=== PATIENT | female | born 1980 | race American Indian/Alaskan Native ===

== ENCOUNTER 2017-07-29 13:33 | Emergency (ER) | payer OTHER ==
--- NOTE | 2017-07-29 13:41 | Emergency Department Report ---
Chief Complaint: Headache Stated Complaint: MIGRAINE/COUGH Time Seen by Provider: 07/29/17 13:39 - HPI History of Present Illness: PT c/o headache x 1 week. PT states it usually hurts in the front but when she coughs the back of her head hurts + productive cough x 1 month - ROS Review of Systems: + post tussive emesis + productive cough on depo - Exam Physical Exam: PT looks well, non toxic PT GCS 15 no focal weakness MSE screening note: Focused history and physical exam performed. Due to findings the following was ordered: xr ED Disposition for MSE Condition: Stable
--- NOTE | 2017-07-29 14:06 | XRay Report ---
ROUTINE CHEST, TWO VIEWS: HISTORY: Productive cough. Partial atelectasis in the right middle lobe is identified which is new since 08/10/15. The remainder of the lungs are clear. No pleural effusion or pneumothorax. Heart and mediastinal structures are within normal limits. IMPRESSION: Partial atelectasis in the right middle lobe.
--- NOTE | 2017-07-29 16:40 | Emergency Department Report ---
ED Headache HPI - General Chief Complaint: Headache Stated Complaint: MIGRAINE/COUGH Time Seen by Provider: 07/29/17 16:39 Source: patient, family Exam Limitations: no limitations - History of Present Illness Initial Comments: Patient here complaining of headache 1 week. She also reports that she has a history of migraine and she was seen a neurologist in the past but she is not seen a neurologist now. She says she took [id number] medication but it didn't help. She is also reporting chest congestion. Denies any fever or chills. Denies any nausea or vomiting. Denies any abdominal pain. Denies any diarrhea. Headache is 10 out of 10" located in the front of her head and feels achy. Patient says she has been having in congestion for 2 months. She denies chest pain or shortness of breath. Patient has a history of migraine, diabetes and bipolar depression. Previous history of tubal ligation. She reports nasal congestion and drainage. She also reports pressure on her eyes. No over-the- counter medication taken. Timing/Duration: 1 week Quality: severe, achy Head Injury Location: frontal Recent Head Trauma: chronic headaches Modifying Factors: improves with: exposure to light, rest Associated Symptoms: nasal congestion, nasal drainage, other (port chest congestionorts chest congestion). denies: confusion, fatigue, facial pain, fever/chills, flushing, loss of consciousness, nausea/vomiting, numbness in legs /feet, rash, seizures, sinus infection, stiff neck, vision changes, weakness Allergies/Adverse Reactions: Allergies No Known Allergies Allergy (Verified 08/04/15 09:24) Home Medications: Ambulatory Orders Amoxicillin [Trimox CAP] 500 mg PO Q8H #30 capsule 08/04/15 Lidocaine Viscous 2% 5 ml MM Q6H #30 ml 08/04/15 Albuterol Sulfate [Ventolin HFA] 2 puff IH Q4H PRN #1 hfa.aer.ad 08/10/15 Amoxicillin/K Clav Tab [Augmentin 875 mg] 1 tab PO Q12HR #20 tab 07/29/17 Butalbit/Acetamin/Caff/Codeine [Fioricet/Codeine 28-343-91-30] 1 cap PO Q8HR PRN #15 cap 07/29/17 Cetirizine HCl [ZyrTEC] 10 mg PO QAM #14 capsule 07/29/17 Fluticasone [Flonase] 1 spray NS QDAY #1 bottle 07/29/17 ED Review of Systems ROS: Stated complaint: MIGRAINE/COUGH Other details as noted in HPI Comment: All other systems reviewed and negative Constitutional: no symptoms reported Eyes: denies: eye pain, vision change ENT: congestion. denies: ear pain, throat pain Respiratory: cough. denies: shortness of breath, SOB with exertion, SOB at rest , stridor, wheezing Cardiovascular: denies: chest pain, palpitations, edema, syncope Gastrointestinal: denies: abdominal pain, nausea, vomiting, diarrhea, constipation, hematemesis, melena, hematochezia Genitourinary: denies: urgency, dysuria, frequency, hematuria, discharge, abnormal menses, dyspareunia Musculoskeletal: denies: back pain, arthralgia Skin: denies: rash Neurological: headache. denies: weakness, numbness, paresthesias, confusion, abnormal gait, vertigo ED Past Medical Hx - Past Medical History Previous Medical History?: Yes Hx Diabetes: Yes Hx Headaches / Migraines: Yes (MIGRAINE) Hx Psychiatric Treatment: Yes (BIPOLAR/DEPRESSION) - Surgical History Past Surgical History?: Yes Additional Surgical History: TUBAL LIGATION - Family History Family history: hypertension - Social History Smoking Status: Current Every Day Smoker Substance Use Type: None - Medications Home Medications: Home Medications Medication Instructions Recorded Confirmed Last Taken Type Amoxicillin [Trimox CAP] 500 mg PO Q8H #30 capsule 08/04/15 Unknown Rx Lidocaine Viscous 2% 5 ml MM Q6H #30 ml 08/04/15 Unknown Rx Albuterol Sulfate [Ventolin HFA] 2 puff IH Q4H PRN #1 hfa.aer.ad 08/10/15 Unknown Rx Amoxicillin/K Clav Tab [Augmentin 1 tab PO Q12HR #20 tab 07/29/17 Unknown Rx 875 mg] Butalbit/Acetamin/Caff/Codeine 1 cap PO Q8HR PRN #15 cap 07/29/17 Unknown Rx [Fioricet/Codeine 74-832-21-30] Cetirizine HCl [ZyrTEC] 10 mg PO QAM #14 capsule 07/29/17 Unknown Rx Fluticasone [Flonase] 1 spray NS QDAY #1 bottle 07/29/17 Unknown Rx ED Physical Exam - General Limitations: No Limitations General appearance: alert, in no apparent distress - Head Head exam: Present: atraumatic, normocephalic, normal inspection - Expanded Head Exam Expanded Head exam: Absent: laceration, abrasion, contusion, hematoma, racoon eyes, morales's sign, general tenderness, tenderness of temporal artery, CSF rhinorrhea , CSF otorrhea - Eye Eye exam: Present: normal appearance, PERRL, EOMI. Absent: conjunctival injection, nystagmus, periorbital swelling, periorbital tenderness Pupils: Present: normal accommodation - ENT ENT exam: Present: normal orophraynx, mucous membranes moist, normal external ear exam, other (Bilateral nasal mucosa congested with erythema and clear drainage. Bilateral maxillary sinus tenderness to palpate). Absent: TM's normal bilaterally (bilateral TM congested without erythema) - Neck Neck exam: Present: normal inspection, full ROM. Absent: tenderness, meningismus, lymphadenopathy - Respiratory Respiratory exam: Present: normal lung sounds bilaterally, other (dry cough). Absent: respiratory distress, wheezes, rales, rhonchi, stridor, chest wall tenderness, accessory muscle use, decreased breath sounds, prolonged expiratory - Cardiovascular Cardiovascular Exam: Present: regular rate, normal rhythm, normal heart sounds. Absent: systolic murmur, diastolic murmur - GI/Abdominal GI/Abdominal exam: Present: soft, normal bowel sounds. Absent: distended, tenderness, guarding, rebound, rigid - Extremities Exam Extremities exam: Present: normal inspection, full ROM, normal capillary refill. Absent: tenderness, pedal edema, joint swelling, calf tenderness - Back Exam Back exam: Present: normal inspection, full ROM. Absent: tenderness, CVA tenderness (R), CVA tenderness (L), muscle spasm, paraspinal tenderness, vertebral tenderness, rash noted - Neurological Exam Neurological exam: Present: alert, oriented X3, normal gait, reflexes normal. Absent: motor sensory deficit - Expanded Neurological Exam Expanded Neurological exam: Absent: innattentive, memory loss-remote event, memory loss- recent event, ataxia, receptive aphasia, expressive aphasia, total aphasia, tremor, protecting the airway Patient oriented to: Present: person, place, time Speech: Present: fluid speech Cranial nerves: EOM's Intact: Normal, Gag Reflex: Normal, Tongue Deviation: Normal, Nystagmus: Normal, Facial Sensation: Normal Cerebellar function: Finger to Nose: Normal, Romberg: Normal Upper motor neuron: Pronator Drift: Normal, Sensory Extinction: Normal Sensory exam: Upper Extremity Light Touch: Normal, Upper Extremity Temperature: Normal, UE 2 Point Discrimination: Normal, Lower Extremity Light Touch: Normal, Lower Extremity Temperature: Normal, LE 2 Point Discrimination: Normal Motor strength exam: RUE: 5, LUE: 5, RLE: 5, LLE: 5 DTR: bicep (R): 2+, bicep (L): 2+, tricep (R): 2+, tricep (L): 2+, knee (R): 2+ , knee (L): 2+, ankle (R): 2+, ankle (L): 2+ Best Eye Response (Huttig): (4) open spontaneously Best Motor Response (Huttig): (6) obeys commands Best Verbal Response (Derik): (5) oriented Derik Total: 15 - Psychiatric Psychiatric exam: Present: normal affect, normal mood - Skin Skin exam: Present: warm, dry, intact, normal color. Absent: rash ED Course Vital Signs 07/29/17 07/29/17 07/29/17 13:39 17:12 19:16 Temperature 97.3 F L 98.7 F Pulse Rate 73 96 H 94 H Respiratory 16 20 18 Rate Blood Pressure 156/89 Blood Pressure 161/78 139/78 [Left] O2 Sat by Pulse 100 99 97 Oximetry - Reevaluation(s) Reevaluation #1: 07/29/17 18:51 Patient received Reglan 20 mg IM, Deltasone 60 mg by mouth and Toradol 60 mg IM in emergency room to manage headache. Up and reevaluation she said her head feels better. ED Medical Decision Making - Lab Data Lab Results 07/29/17 Range/Units 13:41 POC Glucose 110 H (70-105) - Radiology Data Radiology results: report reviewed Chest x-ray revealed partial atelectasis in the right middle lobe. This is since 08/10/2015. The remainder for lungs are clear. No pleural effusion or pneumothorax. Heart and mediastinal structures are within normal limits. Patient encouraged to do deep breathing and coughing exercises every 2 hours to expand her lungs. - Medical Decision Making ED course: Pt here reports that she has nasal congestion and drainage with chest congestion and cough 2 months and she's had headache on and off to frontal area for head 1 week. She says she has a history of migraine and she gets frequent headache but she does not have any migraine headache. She says she was diagnosed with by a neurologist and she had not seen one for a while. Patient was given Deltasone 60 mg by mouth, Toradol 60 mg IM and Reglan 20 mg IM in emergency room for headache which she said relieved her headache. Revealed the patient with partial atelectasis to the right middle lobe lung otherwise normal. I encouraged patient that she needs to do deep breathing and coughing exercises every 2 hours to help to expand her lungs. Patient with diagnosis of migraine headache and sinusitis, cough. Blood glucose was at 110. She was given results of x-ray and her blood sugar and was instructed that she will be placed on Augmentin to cover her sinus infection,Fiorocet Zyrtec and Flonase and she will need to follow up with her primary care physician in 2- 3 days and actually follow up with neurologist that she was recommended to call tomorrow to schedule an appointment. She voiced understanding of discharge instruction and treatment plan and discharged home in stable condition with her family. Critical care attestation.: If time is entered above; I have spent that time in minutes in the direct care of this critically ill patient, excluding procedure time. ED Disposition Clinical Impression: Cough Sinusitis, acute Qualifiers: Sinusitis location: unspecified location Recurrence: not specified as recurrent Qualified Code(s): J01.90 - Acute sinusitis, unspecified Migraine Qualifiers: Migraine type: without aura Status migrainosus presence: without status migrainosus Intractability: not intractable Qualified Code(s): G43.009 - Migraine without aura, not intractable, without status migrainosus Disposition: DC-01 TO HOME OR SELFCARE Is pt being admited?: No Does the pt Need Aspirin: No Condition: Stable Instructions: Sinusitis (ED), Migraine Headache (ED), Acute Cough (ED) Additional Instructions: Please deep breathe and cough every 2 hours to expand her lungs. Follow-up with her primary care physician in 2-3 days and if you do not have one follow-up with [facility] Take medication as prescribed Do not drive or operate heavy machinery while taking Fioricet as this medication as codeine and it will make you drowsy Follow-up with neurologist for chronic migraine. Increase her fluid intake Flush nostrils out with nasal saline and this will help to relieve congestion Prescriptions: Amoxicillin/K Clav Tab [Augmentin 875 mg] 1 tab PO Q12HR #20 tab Butalbit/Acetamin/Caff/Codeine [Fioricet/Codeine 76-148-77-30] 1 cap PO Q8HR PRN #15 cap PRN Reason: Migraine Headache Cetirizine HCl [ZyrTEC] 10 mg PO QAM #14 capsule Fluticasone [Flonase] 1 spray NS QDAY #1 bottle Referrals: PRIMARY CAREMD [Primary Care Provider] - 2-3 Days [facility] [Outside] - 2-3 Days DONTE CRISTOBAL MD [Staff Physician] - 2-3 Days Forms: Accompanied Note, Work/School Release Form(ED)
[2017-07-29] MEDS ORDERED: DELTASONE PO ONE (16:51)
[2017-07-29] MEDS ORDERED: TORADOL IM ONE (16:51)
[2017-07-29] MEDS ORDERED: REGLAN IM ONE (16:51)
[2017-07-29 19:18] VITALS: BP 139/78
== END 2017-07-29 19:15 | disposition home or self-care (01) ==
LOC: ED 13:33
DX: J01.00 Acute maxillary sinusitis, unspecified (principal); G43.909 Migraine, unspecified, not intractable, without status migrainosus; E11.9 Type 2 diabetes mellitus without complications; F17.210 Nicotine dependence, cigarettes, uncomplicated
CPT/HCPCS: 71020; 82962; 96372; 99283; J1885; J2765; J7512

== ENCOUNTER 2018-12-18 11:04 | Emergency (ER) | payer OTHER ==
[2018-12-18 11:19] VITALS: BP 144/88
--- NOTE | 2018-12-18 11:20 | Emergency Department Report ---
Blank Doc - Documentation Documentation: 38-year-old female that presents with heavy vaginal bleeding. About 6+ pads a day. Stated going on for many months that comes and goes. Denies any other complaints. Will order labs Patient to be seen in [facility]
[2018-12-18 12:06] LABS: Basophils % (Auto) 0.6 % (0.0-1.8); Eosinophils # (Auto) 0.2 K/mm3 (0.0-0.4); Eosinophils % (Auto) 2.3 % (0.0-4.3); Hematocrit 42.3 % (30.3-42.9); Hemoglobin 14.1 gm/dl (10.1-14.3); Lymphocytes # (Auto) 3.3 K/mm3 (1.2-5.4); Lymphocytes % (Auto) 43.4 % (13.4-35.0); Mean Corpuscular HGB Conc 33 % (30-34); Mean Corpuscular Volume 88 fl (79-97); Monocytes # (Auto) 0.5 K/mm3 (0.0-0.8); Monocytes % (Auto) 6.2 % (0.0-7.3); Platelet Count 341 K/mm3 (140-440); Red Cell Distribution Width 14.3 % (13.2-15.2)
[2018-12-18] MEDS ORDERED: NORCO 5/325 PO ONE (12:27)
--- NOTE | 2018-12-18 12:31 | Emergency Department Report ---
ED General Adult HPI - General Chief complaint: Vaginal Bleeding Stated complaint: BACK PAIN/WEAK Time Seen by Provider: 12/18/18 11:20 Source: patient Mode of arrival: Ambulatory Limitations: No Limitations - History of Present Illness Initial comments: Patient is a 38-year-old female that comes to the emergency room with numerous complaints. One is a headache. She has known migraines. She does not have a primary care or neurologist and does not take yxpi-xhq-[id number] medicines because they make her "" sleepy. Her second complaint is dysfunctional bleeding from her vagina since summer. She denies a history of fibroids. She did have a tubal ligation in the past. Patient has no CLINICAL TRIALS NURSE physician. Patient denies any major medical problems or routine home medications. Patient denies shortness of breath or chest pain. She denies dizziness. She denies abdominal pain. Her current episode of bleeding started yesterday. She was escorted in on the arm of her daughter. She has no nausea vomiting or diarrhea. She is not tachycardic. She is afebrile. Severity scale (0 -10): 10 - Related Data Previous Rx's Medication Instructions Recorded Last Taken Type Butalb/Acetaminophen/Caffeine 1 cap PO Q8HR PRN #10 cap 12/18/18 Unknown Rx [Fioricet 50-300-40 mg CAP] Allergies Allergy/AdvReac Type Severity Reaction Status Date / Time No Known Allergies Allergy Verified 12/18/18 11:05 ED Review of Systems ROS: Stated complaint: BACK PAIN/WEAK Other details as noted in HPI Comment: All other systems reviewed and negative Constitutional: denies: chills, fever Eyes: denies: eye pain ENT: denies: ear pain Respiratory: denies: cough Cardiovascular: denies: palpitations Gastrointestinal: denies: abdominal pain, nausea, vomiting, diarrhea, constipation, hematemesis, melena Genitourinary: as per HPI, abnormal menses. denies: urgency, dysuria, frequency, hematuria, discharge Musculoskeletal: denies: back pain Skin: denies: rash Neurological: as per HPI, headache Psychiatric: denies: anxiety Hematological/Lymphatic: denies: easy bleeding ED Past Medical Hx - Past Medical History Hx Diabetes: Yes Hx Headaches / Migraines: Yes (MIGRAINE) Hx Psychiatric Treatment: Yes (BIPOLAR/DEPRESSION) - Surgical History Additional Surgical History: TUBAL LIGATION - Social History Smoking Status: Current Every Day Smoker Substance Use Type: None - Medications Home Medications: Home Medications Medication Instructions Recorded Confirmed Last Taken Type Butalb/Acetaminophen/Caffeine 1 cap PO Q8HR PRN #10 cap 12/18/18 Unknown Rx [Fioricet 50-300-40 mg CAP] ED Physical Exam - General Limitations: No Limitations General appearance: alert - Head Head exam: Present: atraumatic - Eye Eye exam: Present: normal appearance, PERRL Pupils: Present: normal accommodation - ENT ENT exam: Present: normal exam, mucous membranes moist - Neck Neck exam: Present: normal inspection - Respiratory Respiratory exam: Present: normal lung sounds bilaterally - Cardiovascular Cardiovascular Exam: Present: regular rate, normal rhythm (80 on exam) - GI/Abdominal GI/Abdominal exam: Present: soft, normal bowel sounds - Rectal Rectal exam: Present: deferred - Expanded Exam Expanded Female exam: Present: deferred - Extremities Exam Extremities exam: Present: normal inspection, full ROM - Back Exam Back exam: Present: normal inspection, full ROM - Neurological Exam Neurological exam: Present: alert, oriented X3, CN II-XII intact, normal gait, reflexes normal. Absent: motor sensory deficit - Psychiatric Psychiatric exam: Present: normal affect, normal mood - Skin Skin exam: Present: warm, dry, intact ED Course Vital Signs 12/18/18 11:17 Temperature 98 F Pulse Rate 95 H Respiratory 18 Rate Blood Pressure 144/88 O2 Sat by Pulse 98 Oximetry ED Medical Decision Making - Lab Data Result diagrams: 12/18/18 11:59 - Medical Decision Making neuro intact no focal neuro def no fever known migraines no pcp dub has had tubal preg neg h/h neg abd snt has no obgyn medicated for pain dc home w referrals Labs 12/18/18 12/18/18 11:59 11:59 WBC 7.6 RBC 4.80 Hgb 14.1 Hct 42.3 MCV 88 MCH 29 MCHC 33 RDW 14.3 Plt Count 341 Lymph % (Auto) 43.4 H Dunn % (Auto) 6.2 Eos % (Auto) 2.3 Baso % (Auto) 0.6 Lymph # 3.3 Dunn # 0.5 Eos # 0.2 Baso # 0.0 Seg Neutrophils % 47.5 Seg Neutrophils # 3.6 HCG, Qual Negative - Differential Diagnosis ro anemia w vag bleeding; ro preg; migraine sahni Critical care attestation.: If time is entered above; I have spent that time in minutes in the direct care of this critically ill patient, excluding procedure time. ED Disposition Clinical Impression: Migraine, DUB (dysfunctional uterine bleeding) Disposition: TO HOME OR SELFCARE Is pt being admited?: No Does the pt Need Aspirin: No Condition: Stable Instructions: Dysfunctional Uterine Bleeding (ED), Migraine Headache (ED) Additional Instructions: hydrate well with water meds as ordered follow up with pcp and obgyn referrals below diet and activity as tolerated Referrals: LARON MORALES MD [Staff Physician] - 3-5 Days JUANJOSE LALA DO [Staff Physician] - 3-5 Days Time of Disposition: 12:32
== END 2018-12-18 13:10 | disposition home or self-care (01) ==
LOC: ED 11:04
DX: G43.909 Migraine, unspecified, not intractable, without status migrainosus (principal); N93.8 Other specified abnormal uterine and vaginal bleeding; E11.9 Type 2 diabetes mellitus without complications; F17.200 Nicotine dependence, unspecified, uncomplicated; Z98.51 Tubal ligation status
CPT/HCPCS: 36415; 84703; 85025; 99283